=== PATIENT | female | born 1940 | race Caucasian/White ===

== ENCOUNTER 2023-09-28 21:03 | Inpatient (IN) | payer MEDICARE, BC ==
[~2023-09-28] VITALS: Ht 147.3 cm; Wt 59.0 kg
[2023-09-28 21:30] VITALS: BP 147/51; TEMP 99.6; O2SAT 96
[2023-09-28] MEDS ORDERED: REMEDY ESSENTIAL ZINC PASTE 113 GM TP PRN (21:30)
[2023-09-28] MEDS ORDERED: ONDANSETRON 4 MG/2 ML VIAL IV PRN (21:30)
[2023-09-28] MEDS ORDERED: ACETAMINOPHEN 325 MG TABLET PO PRN (21:30)
[2023-09-28] MEDS ORDERED: HYDROCODONE/APAP 5-325MG TABLET PO PRN (21:30)
[2023-09-28] MEDS ORDERED: HEPA500014 SQ (22:39)
[2023-09-28] MEDS ORDERED: MORP2VIA IVP (22:39)
[2023-09-28] MEDS ORDERED: FLUO20CA42 PO (22:39)
[2023-09-28] MEDS ORDERED: ONDA4SYR IVP (22:39)
[2023-09-28] MEDS ORDERED: CEFT1PIG2 IV (22:39)
[2023-09-28] MEDS ORDERED: HYDR-4075 PO (22:39)
[2023-09-28] MEDS ORDERED: MORP4SYR4 IV (22:39)
[2023-09-29 06:23] VITALS: BP 134/49; TEMP 98.2; O2SAT 95
[2023-09-29 06:40] LABS: BASOPHILS % (AUTO) 0.5 % (0.0-2.0); EOSINOPHILS # (AUTO) 0.2 K/uL (0.0-0.7); EOSINOPHILS % (AUTO) 2.3 % (0.0-7.0); HEMATOCRIT 26.2 % (31.2-41.9); HEMOGLOBIN 8.7 g/dL (10.9-14.3); LYMPHOCYTES # (AUTO) 1.7 K/uL (0.8-4.8); LYMPHOCYTES % (AUTO) 19.2 % (20.5-51.5); MEAN CORPUSCULAR HEMOGLOBIN 29.5 uug (24.7-32.8); MEAN CORPUSCULAR HGB CONC 33 g/dL (32.3-35.6); MEAN CORPUSCULAR VOLUME 88.4 fL (75.5-95.3); MONOCYTES # (AUTO) 0.8 K/uL (0.1-1.30); MONOCYTES % (AUTO) 9.2 % (0.0-11.0); NEUTROPHILS # (AUTO) 6.2 K/uL (1.8-8.9); NEUTROPHILS % (AUTO) 68.8 % (38.5-71.5); PLATELET COUNT (AUTO) 205 K/uL (179-408); RED BLOOD CELL COUNT(AUTO) 2.96 MIL/uL (3.63-4.92); RED CELL DISTRIBUTION WIDTH 14.4 % (12.3-17.7); WHITE BLOOD COUNT (AUTO) 9.1 K/uL (3.8-11.8)
[2023-09-29] MEDS: PANTOPRAZOLE SODIUM 40 MG TABLET.DR PO SCH (06:41)
[2023-09-29 06:57] LABS: DIFFERENTIAL COMMENT 1
[2023-09-29 07:23] LABS: CALCIUM 8.3 mg/dL (8.5-10.1); CARBON DIOXIDE 27 mmol/L (21-32); CHLORIDE 104 mmol/L (98-107); CHOLESTEROL 174 mg/dL (<200); CREATININE 0.5 mg/dL (0.6-1.3); GLUCOSE 112 mg/dL (74-106); HDL CHOLESTEROL 69 mg/dL (40-60); MAGNESIUM 2.2 mg/dL (1.8-2.4); PHOSPHOROUS 2.9 mg/dL (2.5-4.9); POTASSIUM 3.3 mmol/L (3.5-5.1); SODIUM SERUM 138 mmol/L (136-145); TRIGLYCERIDES 72 MG/DL (30-150); UREA NITROGEN, BLOOD 12 mg/dL (7-18)
[2023-09-29] MEDS: POTASSIUM CHLORIDE 20 MEQ TAB.PRT.SR PO ONE (10:07)
[2023-09-29] MEDS ORDERED: MORP2CAR IV (11:23)
[2023-09-29] MEDS ORDERED: ONDA4TAB5 PO (11:23)
[2023-09-29] MEDS ORDERED: BENZ1LOZ58 MM (11:23)
[2023-09-29 15:23] VITALS: BP 128/45; TEMP 98; O2SAT 95
[2023-09-29 20:00] VITALS: BP 142/44; TEMP 98.4; O2SAT 94
[2023-09-29] MEDS: DOCUSATE SODIUM 100 MG CAPSULE PO SCH (20:37)
[2023-09-29] MEDS: HEPARIN SODIUM,PORCINE 5,000 UNITS/ML VIAL SQ SCH (20:39)
[2023-09-30 06:00] VITALS: BP 149/51; TEMP 98.8; O2SAT 95
[2023-09-30] MEDS: FLUOXETINE HCL 20 MG CAPSULE PO SCH (11:04)
[2023-09-30] MEDS: diphenhydrAMINE 25 MG CAP PO PRN (14:18)
[2023-09-30 15:10] VITALS: BP 122/47; TEMP 98.4; O2SAT 96
[2023-09-30 21:08] VITALS: TEMP 98.4
[2023-10-01 07:04] VITALS: TEMP 97.9
[2023-10-01 15:53] VITALS: BP 129/40; TEMP 98.5; O2SAT 94
[2023-10-01 20:00] VITALS: BP 146/44; TEMP 98.2; O2SAT 95
[2023-10-02 06:00] VITALS: BP 146/52; TEMP 97.6; O2SAT 95
[2023-10-02 15:49] VITALS: BP 138/44; TEMP 98.3; O2SAT 96
[2023-10-02] MEDS ORDERED: GUAIFENESIN LA 600 MG TABLET.SA PO PRN (17:00)
[2023-10-02 20:54] VITALS: BP 134/53; TEMP 98.7; O2SAT 96
[2023-10-03 06:06] VITALS: BP 149/51; TEMP 98.3; O2SAT 96
[2023-10-03 13:11] VITALS: BP 138/39; TEMP 95.5; O2SAT 95
[2023-10-03 14:56] VITALS: BP 130/43; TEMP 97.8; O2SAT 94
[2023-10-03 20:29] VITALS: BP 132/37; TEMP 98.5; O2SAT 95
[2023-10-03] MEDS: OXYCODONE HCL 5 MG TABLET PO PRN (20:59)
[2023-10-03] MEDS: ZOLPIDEM 5 MG TABLET PO PRN (21:01)
[2023-10-04 05:15] VITALS: BP 125/51; TEMP 98.5; O2SAT 94
[2023-10-04 15:06] VITALS: BP 121/100; TEMP 98.2; O2SAT 96
[2023-10-04 20:17] VITALS: BP 123/37; TEMP 98.3; O2SAT 93
[2023-10-05 06:48] VITALS: BP 113/63; TEMP 97.3; O2SAT 93
[2023-10-05 16:05] VITALS: BP 134/44; TEMP 98.7; O2SAT 96
[2023-10-05 19:45] VITALS: BP 130/68; TEMP 98.6; O2SAT 95
[2023-10-06 05:40] VITALS: BP 150/48; TEMP 98.4; O2SAT 96
[2023-10-06 16:22] VITALS: BP 140/44; TEMP 98.1; O2SAT 98
[2023-10-06 19:58] VITALS: BP 127/43; TEMP 98.1; O2SAT 96
[2023-10-07 04:50] VITALS: BP 130/46; TEMP 97.6; O2SAT 96
[2023-10-07 15:09] VITALS: BP 120/39; TEMP 98.1; O2SAT 95
[2023-10-08 11:14] VITALS: BP 145/45; TEMP 97.8; O2SAT 95
[2023-10-08 17:18] VITALS: BP 138/45; TEMP 98; O2SAT 95
[2023-10-08 20:22] VITALS: BP 114/62; TEMP 98.1; O2SAT 92
[2023-10-09 06:50] VITALS: BP 140/50; TEMP 97.7; O2SAT 94
[2023-10-09] MEDS: MAGNESIUM HYDROXIDE 30 ML LIQUID UDC PO PRN (08:06)
[2023-10-09 15:49] VITALS: BP 115/36; TEMP 98.2; O2SAT 96
== END 2023-10-09 16:42 | disposition home health service (06) | DRG 561 ==
PROVIDERS: ADMIT Physical Medicine & Rehabilitation Pain Medicine; ATTEND Physical Medicine & Rehabilitation Pain Medicine
DX: S42.302D Unspecified fracture of shaft of humerus, left arm, subsequent encounter for fracture with routine healing (principal); W11.XXXD Fall on and from ladder, subsequent encounter; M81.0 Age-related osteoporosis without current pathological fracture; M19.90 Unspecified osteoarthritis, unspecified site; D64.9 Anemia, unspecified; Z88.6 Allergy status to analgesic agent; Z88.0 Allergy status to penicillin; F32.A Depression, unspecified; Z88.4 Allergy status to anesthetic agent
CPT/HCPCS: 36415; 73060; 83735; 84100; 85025; 97535-GO-CO; A6213; J1644; Q0163